=== PATIENT | male | born 1935 | race Caucasian/White ===

== ENCOUNTER 2018-06-17 04:14 | Emergency (ER) | payer MEDICARE, OTHER ==
[~2018-06-17] VITALS: Ht 182.9 cm; Wt 225.0 kg
[~2018-06-17 04:14] MED LIST: ALBU3IS INH; ATOR10 PO; BISA10S PR; BUME2 PO; CALCIUM ACETAT667 MG PO; LAVAP17G PO; METHENAMINE1 GM MC; PANT40; PRED20 PO; VALS80 PO
== END 2018-06-17 04:23 ==
LOC: ER 04:14
DX: I46.9 Cardiac arrest, cause unspecified (principal); I10 Essential (primary) hypertension; Z87.891 Personal history of nicotine dependence; Z79.899 Other long term (current) drug therapy; Z79.51 Long term (current) use of inhaled steroids; Z79.52 Long term (current) use of systemic steroids
CPT/HCPCS: 92950; 96374; 96375; 99285-25; J0282; J0610